=== PATIENT | male | born 1985 | race Caucasian/White ===

== ENCOUNTER 2024-04-20 13:16 | Outpatient (CLI) | payer MEDICAID, SELFPAY ==
--- NOTE | 2024-04-20 15:01 | DI.RAD_ITS ---
Exam(s) XR CHEST 2V PA LATERAL EXAM: XR CHEST 2V PA LATERAL CLINICAL HISTORY: R05.8 Productive cough. TECHNIQUE: 2D digital imaging was performed. COMPARISON: No exams were available for comparison FINDINGS: 2 views: Heart size is normal. The mediastinum is not widened. Lungs are clear. No infiltrates nor pleural effusions. IMPRESSION: No acute pulmonary findings. DATA REPOSITORY: RADIATION DOSE DELIVERED:
== END 2024-04-20 13:36 ==
LOC: DI 13:16
PROVIDERS: Visit Provider Student in an Organized Health Care Education/Training Program
DX: R05.8 Other specified cough (principal)
CPT/HCPCS: 71046

== ENCOUNTER 2024-07-01 11:21 | Emergency (ER) | payer MEDICAID, SELFPAY ==
[2024-07-01 11:29] VITALS: BP 154/104; PULSE 105; RESP 20; TEMP 37; O2SAT 98
--- NOTE | 2024-07-01 11:54 | ED.GENADUL_ITS ---
Discharge Plan Disposition Patient Disposition: Home Condition: Stable Discharge Details Clinical Impression: Fracture of great toe of right foot Primary Care Provider: Unknown,Unknown ED Provider: Jovan Gregory Home Meds and New Rx's Prescriptions: No Action methylphenidate HCl 20 mg tablet 20 mg PO ONCE Patient Comments: TAKE TWO TABLETS BY MOUTH TWICE A DAY FOR 28 DAYS Gazyva 1,000 mg/40 mL solution 328 mg IV Q7D Rx Instructions: administer on days 1, 8 and 15 of first cycle Discharge Instructions Instructions: Toe Fracture ED Additional Instructions: You were seen in the emergency department for the fracture of your right great toe, we are placing you in a short walking boot and provided crutches, please weight-bear as tolerated, rest, ice, compress and elevate the toe often, follow- up with orthopedics as your fracture appears to be comminuted and may need fixation. Please use therapeutic dosing of Tylenol (acetamenophen) & Advil (ibuprofen) in an alternating fashion as follows: Take 1000mg of Tylenol every 6 hours without missing doses- that is 4 times per day. Custodial in between the Tylenol dosings, take 400-600mg of Advil also on a 6 hour schedule, that is also 4 times per day. The daily maximum dosing of Tylenol is 4000mg, and the daily maximum dosing of Advil is 2400mg. This is safe to do for weeks. Please note that some common cold medications & prescription pain medications may contain acetamenophen and you need to read OTC drug labels and factor that in to maximum daily dosings. Please return for signs of infection or neurovascular compromise to the distal right great toe Referrals: [facility] [Provider Group] Discharge Data Discharge Date/Time-TO BE ENTERED AT DEPARTURE: 07/01/24 14:53 HPI General Date/Time Provider Initiated Documentation: 07/01/24 11:36 . HPI Narrative: 39 year-old male presents to ED today by POV/ambulating with a chief complaint of R great toe injury, stubbed it on woodstove with onset hours ago. Quality described as slight lateral deviation of big toe- severe limit to ROM, pain and mild bruising at base of great toe. Patient is R-foot dominant, no radiation to complete numbness, open lesion, proximal mid-foot pain, ankle pain. Severity is described as 9/10. Palliating factors include nothing specific. Provoking facto rs include nothing specific. Patient not anticoagulated. Related Data Home Medications ?Medication ?Instructions ?Recorded ?Confirmed methylphenidate HCl 20 mg tablet 20 mg PO ONCE 07/01/24 07/01/24 obinutuzumab 1,000 mg/40 mL 328 mg IV Q7D 07/01/24 07/01/24 intravenous solution (Gazyva) Allergies Allergy/AdvReac Type Severity Reaction Status Date / Time No Known Allergies Allergy Unverified 07/01/24 11:33 General Stated Complaint: Orthopedic NADYA: 4 Review of Systems All systems reviewed & are unremarkable except as noted in HPI and below Exam Narrative Exam Narrative: GENERAL APPEARANCE: Well-nourished, non-toxic, awake and alert, atraumatic, no acute distress. SKIN: Warm, pink, dry, intact, without rashes/lesions/ulcerations. HEAD: Normocephalic, atraumatic, normal hair distribution for gender/age. EYES: Normal conjunctiva, no exudates on lids/lashes. ENT: Nares patent, no circumoral cyanosis, no facial swelling NECK: Supple, trachea midline, painless cervical ROM. LUNGS/CHEST: Non-labored respirations, normal A/P diameter, symmetrical expansion, no chest wall deformity HEART (CV/PV): Regular rate, no peripheral edema, no JVD. ABDOMEN: Soft, non-distended, no guarding. MSK: Normal ROM, no swelling/deformity to bilateral UEs or LEs, moving all extremities without weakness, no cyanosis, spine midline without tenderness, normal curvature, tenderness, swelling, medial deviation of right great toe, limited range of motion to pain, sensation intact, no midfoot or proximal ankle tenderness NEURO: Mental Status AAOx4 - alert to person, place, time, events No facial droop, no forehead involvement. Motor: No focal weakness - strength 5/5 in bilateral UEs and LEs, proximal and distal, symmetric. Sensory: sensation intact to light touch globally. Gait NT PSYCH: euthymic, cooperative, pleasant, appropriate speech Course Vital Signs Vital signs: Vital Signs Temperature 37.0 C 07/01/24 11:29 Pulse 105 H 07/01/24 11:29 Respiratory Rate 20 07/01/24 11:29 Blood Pressure 154/104 H 07/01/24 11:29 Pulse Oximetry 98 07/01/24 11:29 Temperature 37.0 C 07/01/24 11:29 Pulse 105 H 07/01/24 11:29 Respiratory Rate 20 07/01/24 11:29 Blood Pressure 154/104 H 07/01/24 11:29 Blood Pressure Position Sitting 07/01/24 11:29 Pulse Oximetry 98 07/01/24 11:29 Oxygen Delivery Method Room Air 07/01/24 11:29 Oxygen Flow Rate 0 07/01/24 11:29 Pain Level 10 07/01/24 11:29 Medical Decision Making This dictation utilizes [id number] dictation software and may contain unedited grammatical errors. 39 year-old male presents to ED today by POV/ambulating with a chief complaint of R great toe injury, stubbed it on woodstove with onset hours ago. Quality described as slight lateral deviation of big toe- severe limit to ROM, pain and mild bruising at base of great toe. Patient is R-foot dominant, no radiation to complete numbness, open lesion, proximal mid-foot pain, ankle pain. Severity is described as 9/10. Palliating factors include nothing specific. Provoking factors include nothing specific. Patients' medical history: Noncontributory. Family and social history: Noncontributory. Pertinent exam findings / vital signs include tenderness to palpation of the base of the right great toe with slight medial deviation, right dorsalis pedis pulse 2+, no proximal foot or midfoot tenderness, no ankle tenderness, sensation intact in distal great toe. Differential / pathologies of concern include fracture, Lisfranc, sprain/strain, contusion. Diagnostic studies of: -XR right great toe, CT right foot. -XR shows questionable step-off fracture, I ordered CT to further characterize possibility of surgical complications as well as rule out of Lisfranc injury- comminuted great toe fracture Interventions of: -Walking boot and crutches, orthopedic referral. ED Course/Assessment/Plan: 39-year-old male has a comminuted right great toe fracture, I recommended follow-up with orthopedics, perform RICE therapy and therapeutic dosing Tylenol and ibuprofen, given walking boot, no signs of neurovascular compromise. Findings not consistent with neurovascular compromise, Lisfranc injury. Disposition of fracture of great toe right foot. Patient verbalized understanding of the plan and return to ED criteria and engaged in shared decision making. Medical Records Medical records reviewed: Yes I reviewed the patient's medical records. Imaging Data Radiologic Study: Attestation: I personally reviewed and interpreted this imaging study as follows: Imaging: X-Ray Radiologist's impression: Exam: XR Right Toe(s) Exam date and time: 07/01/2024 11:48 AM Age: 39 years old Clinical indication: Pain; Toes; Right TECHNIQUE: Imaging protocol: Radiologic exam of the right toes. Views: Minimum 2 views. COMPARISON: No relevant prior studies available. FINDINGS: Bones/joints: Subtle lucency with step-off in the distal half of the proximal phalanx of the great toe consistent with acute or subacute fracture.. Soft tissues: Soft tissue swelling of the great toe IMPRESSION: Subtle lucency with step-off in the distal half of the proximal phalanx of the great toe consistent with acute or subacute fracture.. Dictated and Authenticated by: Royce Tanner MD. Radiologic Study #2: Attestation: I personally reviewed and interpreted this imaging study as follows: Imaging: CT Scan Radiologist's impression: Exam: CT Right Lower Extremity, Foot Exam date and time: 07/01/2024 1:11 PM Age: 39 years old Clinical indication: Injury or trauma; Other: Stubbed toe on wood stove; Blunt trauma; Toes; Right TECHNIQUE: Imaging protocol: CT of the right lower extremity without contrast was performed. Exam focused on the foot. COMPARISON: CR XR TOE RT GREAT 07/01/2024 11:48 AM FINDINGS: Bones/joints: Comminuted minimally displaced fracture of the proximal phalanx of the great toe (series 4, image 351). Soft tissues: Soft tissue swelling of the great toe IMPRESSION: Comminuted minimally displaced fracture of the proximal phalanx of the great toe (series 4, image 351). Dictated and Authenticated by: Royce Tanner MD. Quality:SDOH Health Related Social Needs: No Data to Display PFSH All Active Problems (Updated 07/01/24 @ 14:36 by CHELE Melgoza) Fracture of great toe of right foot (Acute) Social History Smoking/Tobacco Use Status: Never Smoking risk assessment performed?: Yes Alcohol Intake: never Substance use type: does not use Housing: house
--- NOTE | 2024-07-01 11:54 | DI.RAD_ITS ---
Exam(s) XR TOE RT GREAT EXAM: XR TOE RT GREAT CLINICAL HISTORY: stubbed R great toe. TECHNIQUE: 2D digital imaging was performed. Three images were obtained. COMPARISON: No exams were available for comparison FINDINGS: BONES: There is an acute oblique fracture through the shaft of the proximal phalanx of the great toe . 2 mm lateral displacement of the distal fracture is noted. The fracture does not appear to extend into the joint spaces. No bony destructive lesion is seen. JOINTS: No dislocation present. SOFT TISSUE: Normal. IMPRESSION: There is an acute fracture involving the shaft of the proximal phalanx of the great toe. DATA REPOSITORY: RADIATION DOSE DELIVERED:
--- NOTE | 2024-07-01 12:28 | DI.VRAD_ITS ---
PROCEDURE INFORMATION: Exam: XR Right Toe(s) Exam date and time: 07/01/2024 11:48 AM Age: 39 years old Clinical indication: Pain; Toes; Right TECHNIQUE: Imaging protocol: Radiologic exam of the right toes. Views: Minimum 2 views. COMPARISON: No relevant prior studies available. FINDINGS: Bones/joints: Subtle lucency with step-off in the distal half of the proximal phalanx of the great toe consistent with acute or subacute fracture.. Soft tissues: Soft tissue swelling of the great toe IMPRESSION: Subtle lucency with step-off in the distal half of the proximal phalanx of the great toe consistent with acute or subacute fracture.. Dictated and Authenticated by: Royce Tanner MD. Ordering:KALEN Aldana MD
--- NOTE | 2024-07-01 12:45 | DI.CT_ITS ---
Exam(s) CT LOWER EXTREMITY RT WO EXAM: CT LOWER EXTREMITY RT WO CLINICAL HISTORY: R FOOT CT; fx vs lisfranc. TECHNIQUE: Imaging Protocol: Axial computed tomography images with coronal and sagittal reformatted images were created and reviewed. COMPARISON: CR,XR XR TOE RT GREAT from 07/01/2024 FINDINGS: Bones: There is an acute oblique fracture involving the distal half of the proximal phalanx of the g reat toe. The fracture is mildly comminuted. There is no extension into the joint space. No other fractures identified. No cellulitic or osteomyelitic changes are identified. There is no evidence o f joint space narrowing or cystic degeneration seen. No lytic or sclerotic lesions are identified. Soft Tissues: There is mild soft tissue swelling of the great toe. IMPRESSION: Acute mildly comminuted fracture involving the proximal phalanx of the great toe. RADIATION DOSE DELIVERED: 96.11mGy.cm Total DLP 96.11mGy.cm Total DLP DATA REPOSITORY: All CT scans at this facility are submitted to the National Radiology Data Registry (NRDR) Dose Index Registry (DIR) with the [employer] ([employer]). RADIATION OPTIMIZATION: All CT scans at this facility use at least one of these dose optimization te chniques: automated exposure control; mA and/or kV adjustment per patient size (includes targeted exa ms where dose is matched to clinical indication); or iterative reconstruction.
[2024-07-01] MEDS: Ketorolac 30 MG/ML VIAL IM (12:57)
[2024-07-01] MEDS: Acetaminophen 500 MG TAB 1000 MG PO (12:57)
--- NOTE | 2024-07-01 13:32 | DI.VRAD_ITS ---
PROCEDURE INFORMATION: Exam: CT Right Lower Extremity, Foot Exam date and time: 07/01/2024 1:11 PM Age: 39 years old Clinical indication: Injury or trauma; Other: Stubbed toe on wood stove; Blunt trauma; Toes; Right TECHNIQUE: Imaging protocol: CT of the right lower extremity without contrast was performed. Exam focused on the foot. COMPARISON: CR XR TOE RT GREAT 07/01/2024 11:48 AM FINDINGS: Bones/joints: Comminuted minimally displaced fracture of the proximal phalanx of the great toe (series 4, image 351). Soft tissues: Soft tissue swelling of the great toe IMPRESSION: Comminuted minimally displaced fracture of the proximal phalanx of the great toe (series 4, image 351). Dictated and Authenticated by: Royce Tanner MD. Ordering:KALEN Aldana MD
[2024-07-01 13:33] VITALS: BP 142/86; PULSE 84; RESP 18; TEMP 36.6; O2SAT 96
[2024-07-01] MEDS: oxyCODONE 5 MG TAB 40 MG PO (14:49)
== END 2024-07-01 14:53 | disposition home or self-care (01) ==
PROVIDERS: Emergency Provider Physician Assistant
DX: S92.411A Displaced fracture of proximal phalanx of right great toe, initial encounter for closed fracture (principal); W22.09XA Striking against other stationary object, initial encounter
CPT/HCPCS: 96372; 99284; 73660; 73700; J1885

== ENCOUNTER 2024-07-20 15:28 | Outpatient (CLI) | payer MEDICAID, SELFPAY ==
--- NOTE | 2024-07-20 11:00 | DI.RAD_ITS ---
Exam(s) XR TOE RT GREAT EXAM: XR TOE RT GREAT CLINICAL HISTORY: F/U FRACTURE. TECHNIQUE: 2D digital imaging was performed. Three images were obtained. COMPARISON: CR,XR XR TOE RT GREAT from 07/01/2024 FINDINGS: BONES: There has been no change in alignment of the fracture involving the proximal phalanx of the g reat toe. The fracture line is still visualized. No bony destructive lesion is seen. JOINTS: No dislocation present. SOFT TISSUE: Normal. IMPRESSION: Stable alignment of the fracture of the proximal phalanx of the great toe. DATA REPOSITORY: RADIATION DOSE DELIVERED:
== END 2024-07-20 15:29 | disposition home or self-care (01) ==
LOC: DIORS 15:29
PROVIDERS: PCP Family Medicine; Visit Provider Physician Assistant
DX: S92.411D Displaced fracture of proximal phalanx of right great toe, subsequent encounter for fracture with routine healing (principal); X58.XXXD Exposure to other specified factors, subsequent encounter
CPT/HCPCS: 73660

== ENCOUNTER 2024-08-17 15:26 | Outpatient (CLI) | payer MEDICAID, SELFPAY ==
--- NOTE | 2024-08-17 10:39 | DI.RAD_ITS ---
Exam(s) XR TOE RT GREAT EXAM: XR TOE RT GREAT INDICATION: fracture follow up. COMPARISON: CR XR TOE RT GREAT from 07/20/2024 TECHNIQUE: 2D digital imaging was performed. Three views. FINDINGS: Stable alignment of fracture of the proximal phalanx of the great toe. Some interval healing. DATA REPOSITORY: RADIATION DOSE DELIVERED:
== END 2024-08-17 15:27 | disposition home or self-care (01) ==
LOC: DIORS 15:27
PROVIDERS: PCP Family Medicine; Visit Provider Physician Assistant
DX: S92.411D Displaced fracture of proximal phalanx of right great toe, subsequent encounter for fracture with routine healing (principal); X58.XXXD Exposure to other specified factors, subsequent encounter
CPT/HCPCS: 73660

== ENCOUNTER 2024-09-14 15:57 | Outpatient (CLI) | payer MEDICAID, SELFPAY ==
--- NOTE | 2024-09-14 10:00 | DI.RAD_ITS ---
Exam(s) XR TOE RT GREAT EXAM: XR TOE RT GREAT CLINICAL HISTORY: F/U FRACTURE. TECHNIQUE: 2D digital imaging was performed. COMPARISON: CR XR TOE RT GREAT from 08/17/2024 FINDINGS: BONES: Stable alignment of the fracture of the proximal phalanx of the great toe. Increased callus formation. No bony destructive lesion is seen. JOINTS: No dislocation present. SOFT TISSUE: Swelling around great toe. IMPRESSION: Healing fracture proximal phalanx of the great toe. DATA REPOSITORY: RADIATION DOSE DELIVERED:
== END 2024-09-14 15:58 | disposition home or self-care (01) ==
LOC: DIORS 15:57
PROVIDERS: PCP Family Medicine; Visit Provider Physician Assistant
DX: S92.411D Displaced fracture of proximal phalanx of right great toe, subsequent encounter for fracture with routine healing (principal); X58.XXXD Exposure to other specified factors, subsequent encounter
CPT/HCPCS: 73660

== ENCOUNTER 2024-11-07 14:44 | Outpatient (CLI) | payer MEDICAID, SELFPAY ==
--- NOTE | 2024-11-07 12:45 | DI.RAD_ITS ---
Exam(s) XR TOE RT GREAT EXAM: XR TOE RT GREAT CLINICAL HISTORY: F/U R GREAT TOE FX. TECHNIQUE: 2D digital imaging was performed. COMPARISON: CR XR TOE RT GREAT from 08/17/2024 CR XR TOE RT GREAT from 09/14/2024 FINDINGS: BONES: There has been continued healing of the fracture of the proximal phalanx of the great toe. T he fracture line remains faintly visible. No bony destructive lesion is seen. JOINTS: No dislocation present. SOFT TISSUE: Normal. IMPRESSION: Continued fracture healing. DATA REPOSITORY: RADIATION DOSE DELIVERED:
== END 2024-11-07 14:45 | disposition home or self-care (01) ==
LOC: DIORS 14:44
PROVIDERS: PCP Family Medicine; Visit Provider Physician Assistant
DX: S92.401A Displaced unspecified fracture of right great toe, initial encounter for closed fracture (principal)
CPT/HCPCS: 73660

== ENCOUNTER 2024-12-26 15:19 | Outpatient (CLI) | payer MEDICAID, SELFPAY ==
--- NOTE | 2024-12-26 13:15 | DI.RAD_ITS ---
Exam(s) XR TOE RT GREAT EXAM: XR TOE RT GREAT CLINICAL HISTORY: F/U FRACTURE. TECHNIQUE: 2D digital imaging was performed. Three images were obtained. COMPARISON: CR XR TOE RT GREAT from 07/20/2024 CR XR TOE RT GREAT from 08/17/2024 CR XR TOE RT GREAT from 09/14/2024 CR XR TOE RT GREAT from 11/07/2024 FINDINGS: BONES: The fracture involving the proximal phalanx of the great toe appears healed. No new fracture is identified. No bony destructive lesion is seen. JOINTS: No dislocation present. SOFT TISSUE: Normal. IMPRESSION: Healed fracture involving the proximal phalanx of the great toe. DATA REPOSITORY: RADIATION DOSE DELIVERED:
== END 2024-12-26 15:20 | disposition home or self-care (01) ==
LOC: DIORS 15:19
PROVIDERS: PCP Family Medicine; Visit Provider Physician Assistant
DX: S92.401A Displaced unspecified fracture of right great toe, initial encounter for closed fracture (principal)
CPT/HCPCS: 73660

== ENCOUNTER 2025-03-05 15:44 | Outpatient (CLI) | payer MEDICAID, SELFPAY ==
--- NOTE | 2025-03-05 14:45 | DI.RAD_ITS ---
Exam(s) XR TOE RT GREAT EXAM: XR TOE RT GREAT CLINICAL HISTORY: right great toe fracture. TECHNIQUE: 2D digital imaging was performed. COMPARISON: CR XR TOE RT GREAT from 12/26/2024 FINDINGS: 3 views Again noted is a previously described oblique fracture of the proximal phalanx of the great toe unchanged from 12/26/2024. No remaining fracture line evident. No new fractures. Interphalangeal joint appears unremarkable. Bone density normal. No osseous lesions IMPRESSION: Stable appearance of the healed fracture site in the proximal phalanx of the great toe of the right foot. DATA REPOSITORY: RADIATION DOSE DELIVERED:
== END 2025-03-05 15:45 | disposition home or self-care (01) ==
LOC: DIORS 15:44
PROVIDERS: PCP Family Medicine; Visit Provider Physician Assistant
DX: S92.401A Displaced unspecified fracture of right great toe, initial encounter for closed fracture (principal)
CPT/HCPCS: 73660